=== PATIENT | male | born 1965 | race Caucasian/White ===

== ENCOUNTER → 2019-12-08 18:14 | Outpatient (CLI) | payer OTHER, SELFPAY ==
--- NOTE | 2019-12-08 | DI.MRI.S_ITS ---
PROCEDURE: MRFOOT LT WO CON INDICATIONS: Charcot's joint, left ankle and foot TECHNIQUE: Noncontrast sagittal T1 spin echo and T2 fast spin echo with fat saturation, long-axis T1 spin echo and T2 fast spin echo with fat saturation, short-axis T1 spin echo and T2 fast spin echo with fat saturation through the forefoot. COMPARISON: None. FINDINGS: Image quality: Diagnostic. Bones and joints: Severe degenerative changes of the midfoot joints are most pronounced involving the tarsal metatarsal joints and demonstrate prominent marrow edema, degenerative cystic change, bony remodeling, and potential fragmentation. No definitive acute fracture is evident. There are [id number] degenerative changes involving the other joints of the forefoot. No suspicious osseous lesions are appreciated. No large joint effusions are identified. Soft tissues: Extensive subcutaneous edema about the forefoot is more prominent overlying the dorsal aspect of the forefoot. No unexpected radiopaque foreign bodies are appreciated. No soft tissue masses are evident. Prominent atrophy of the intrinsic muscles of the foot are evident. The flexor and extensor tendons of the foot appear to be within normal limits. The Lisfranc ligament is not well evaluated, but appears to be nearly completely torn. IMPRESSION: 1. Advanced degenerative changes of the midfoot joints is compatible with the patient's history of Charcot arthropathy. Superimposed osteomyelitis cannot be completely excluded on the basis of this examination. 2. No definite fractures. 3. Subcutaneous edema about the forefoot without loculated or drainable fluid collection is of uncertain etiology. Please correlate clinically to exclude cellulitis. Dictated by: Cody Pinto M.D. on 12/09/2019 at 13:56 Approved by: Cody Pinto M.D. on 12/09/2019 at 14:00
--- NOTE | 2019-12-08 | DI.MRI.S_ITS ---
PROCEDURE: MR ANKLE LT W CON INDICATIONS: Charcot's joint, left ankle and foot TECHNIQUE: After the administration of 5 mL of dilute intra-articular Gadolinium contrast into the tibiotalar joint, sagittal T1 spin echo with and without fat saturation, axial T1 fast spin echo with fat saturation and T2 fast spin echo with fat saturation, coronal T1 spin echo and T2 fast spin echo with fat saturation through the ankle. COMPARISON: None. FINDINGS: Image quality: Diagnostic. Bones and joints: No acute fracture, dislocation, or suspicious osseous lesion is appreciated involving the midfoot or hindfoot joints. The ankle mortise alignment is within normal limits. There are no osteochondral fragments or defects involving the tibial plafond toward the talar dome. Severe degenerative changes of the midfoot joints are identified, compatible with the patient's history of Charcot arthropathy. Areas of marrow edema and degenerative cystic change are noted involving the navicular, cuboid, and imaged other tarsal bones. Plantar and Achilles spurs involving the calcaneal tuberosity are identified. There mild degenerative changes of the hindfoot joints. Medial structures: The deltoid and spring ligaments are intact. There is thickening and increased signal identified involving the tibialis posterior tendon with a small amount of fluid contained within its corresponding tendon sheath. The flexor hallucis longus and flexor digitorum longus tendons are intact and otherwise unremarkable. Nonspecific edema is identified involving the distal aspect of the imaged portions of the flexor hallucis longus muscle. The posterior tibial nerve through the region of the tarsal tunnel is within normal limits. Subcutaneous edema about the medial aspect of the ankle is present. Lateral structures: The anterior and posterior distal tibiofibular ligaments are thickened, but noted to be intact. Anterior talofibular ligament is completely torn, which is likely chronic. The posterior talofibular ligament is intact. The calcaneofibular ligament is prominently thickened. The peroneus longus and peroneus brevis tendons are intact, but demonstrate mild increased signal along the posterior margin of the lateral malleolus. There is subcutaneous edema about the lateral aspect of the ankle. Normal fatty signal is seen within the sinus tarsi. Anterior structures: The tibialis anterior, extensor hallucis longus, and extensor digitorum longus tendons appear intact. Posterior and plantar structures: Achilles tendon is intact. Mild thickening involving the distal Achilles tendon is present. Medial and lateral bands of the plantar fascia are of normal thickness. Mild thickening involving medial band of the plantar fascia is present without associated tearing. Fluid is contained within the subcutaneous tissues underlying the plantar surface of the plantar fascia. IMPRESSION: 1. Prominent degenerative changes of the imaged mid foot joints are compatible with the patient's history of Charcot arthropathy. Please note that superimposed osteomyelitis cannot be excluded, if osteomyelitis is of clinical concern. 2. No acute fractures. 3. Moderate tibialis posterior tendinopathy without significant tearing. 4. Mild tenosynovitis involving the medial flexor tendons. There may be a strain of the distal aspect of the flexor hallucis longus muscle. 4. Scarring of the lateral ankle ligaments with a chronic full-thickness anterior talofibular ligament tear. 6. Mild peroneus brevis and peroneus longus tendinopathy. 7. Mild distal Achilles tendinopathy. 8. Plantar and Achilles spurs with corresponding thickening of the heel pad of the plantar fascia. Underlying fluid is present within the subcutaneous tissues. Please correlate clinically for possible plantar fasciitis. 9. Subcutaneous edema about the ankle. Dictated by: Cody Pinto M.D. on 12/09/2019 at 14:00 Approved by: Cody Pinto M.D. on 12/09/2019 at 14:12
== END ==
PROVIDERS: Visit Provider Podiatrist
DX: E11.42 Type 2 diabetes mellitus with diabetic polyneuropathy (principal); S93.492A Sprain of other ligament of left ankle, initial encounter; M65.872 Other synovitis and tenosynovitis, left ankle and foot; M77.52 Other enthesopathy of left foot and ankle; M14.672 Charcot's joint, left ankle and foot; R60.0 Localized edema; R26.81 Unsteadiness on feet; M79.672 Pain in left foot; M25.475 Effusion, left foot
CPT/HCPCS: 73718; 73722

== ENCOUNTER → 2024-03-10 14:45 | Outpatient (CLI) | payer OTHER, SELFPAY ==
--- NOTE | 2024-03-10 14:49 | DI.RAD.S_ITS ---
PROCEDURE: XR SHOULDER RT MIN 2V INDICATIONS: RIGHT SHOULDER PAIN TECHNIQUE: 3 views of the shoulder were acquired. COMPARISON: None. FINDINGS: Bones: No fractures or dislocations. Mild degenerative changes. No suspicious bony lesions. Visualized ribs appear intact. Soft tissues: No suspicious soft tissue calcifications. IMPRESSION: Mild right shoulder DJD. Dictated by: Enrique Argueta M.D. on 03/10/2024 at 21:19 Approved by: Enrique Argueta M.D. on 03/10/2024 at 21:24
== END ==
PROVIDERS: PCP Internal Medicine; Referring Provider Internal Medicine; Visit Provider Internal Medicine
DX: M19.011 Primary osteoarthritis, right shoulder (principal); M25.511 Pain in right shoulder
CPT/HCPCS: 73030

== ENCOUNTER → 2024-05-28 08:21 | Outpatient (CLI) | payer OTHER, SELFPAY ==
--- NOTE | 2024-05-28 | DI.MRI.S_ITS ---
PROCEDURE: MR SHOULDER RT WO CON INDICATIONS: Pain in right shoulder TECHNIQUE: Noncontrast oblique coronal T2 fast spin echo with fat saturation, oblique sagittal T1 spin echo and T2 fast spin echo with fat saturation, axial T1 spin echo and T2 fast spin echo with fat saturation through the shoulder. COMPARISON: None. FINDINGS: Image quality: Excellent. Rotator cuff: Full-thickness rupture of distal supraspinatus and infraspinatus at their insertions on the humeral head is seen with up to 2.9 cm medial retraction of torn tendon fibers to the level of acromion. Moderate grade partial-thickness tear involving superior to mid fibers of distal subscapularis is seen. Sagittal images demonstrate moderate supraspinatus muscle atrophy. Bones and bursae: There is superior migration of humeral head in relation to glenoid. Moderate acromioclavicular joint and glenohumeral joint osteoarthritic changes are seen. No acute fracture or dislocation. Moderate subacromial subdeltoid bursal fluid is noted. No gross loose bodies. Capsule and soft tissues: Labrum is grossly intact. The long head of the biceps tendon appears thickened with intrasubstance T2 hyperintense signal at the level of humeral head . The rotator interval appears normal, without fibrosis. The coracohumeral ligament is normal in thickness. IMPRESSION: 1. Full-thickness rupture of distal supraspinatus and infraspinatus with up to 2.9 cm medial retraction of torn tendon fibers to the level of acromion. Low to moderate grade partial-thickness tear involving superior to mid fibers of distal subscapularis. Moderate supraspinatus muscle atrophy. 2. Superior migration of humeral head. Moderate acromioclavicular joint and glenohumeral joint osteoarthritis. No acute fracture or dislocation. Moderate subacromial subdeltoid bursal fluid, no loose bodies. 3. No definite focal labral tear. 4. Tendinosis and low-grade intrasubstance partial-thickness tear involving proximal intra-articular portion of long head of biceps. Dictated by: Joshua Duarte M.D. on 05/30/2024 at 11:53 Approved by: Joshua Duarte M.D. on 05/30/2024 at 12:04
== END ==
PROVIDERS: PCP Internal Medicine; Referring Provider Internal Medicine; Visit Provider Internal Medicine
DX: M75.121 Complete rotator cuff tear or rupture of right shoulder, not specified as traumatic (principal); S46.111A Strain of muscle, fascia and tendon of long head of biceps, right arm, initial encounter; M25.511 Pain in right shoulder; M19.011 Primary osteoarthritis, right shoulder
CPT/HCPCS: 73221

== ENCOUNTER → 2025-03-06 15:41 | Outpatient (CLI) | payer OTHER, SELFPAY ==
--- NOTE | 2025-03-06 15:44 | DI.RAD.S_ITS ---
PROCEDURE: FL ARTHROGRAM SHOULDER RT INDICATIONS: Rotator cuff repair COMPARISON: None. TECHNIQUE: The indications, alternatives, benefits, risks, and complications of the procedure were explained to the patient. Written informed consent was obtained and placed in the chart. The shoulder was examined fluoroscopically and a site for needle placement chosen for entry into the glenohumeral joint from an anterior approach. The skin was prepped and draped in a sterile fashion, and 1% lidocaine infiltrated from skin down to joint capsule. A spinal needle was inserted into the glenohumeral joint, and a small amount of iodinated contrast media injected to confirm intra-articular placement of the needle tip. This was followed by approximately 12 mL dilute solution of a gadolinium containing MR contrast agent. The needle was removed and a dressing was applied. The patient was given postprocedural instructions and sent to the MR suite for MR imaging. FINDINGS: A single fluoroscopic spot image demonstrates intra-articular location of injected iodinated contrast. IMPRESSION: Successful fluoroscopically guided administration of dilute Gadolinium solution into the shoulder joint for MR arthrogram. Dictated by: Mello Fleming M.D. on 03/06/2025 at 16:43 Approved by: Mello Fleming M.D. on 03/06/2025 at 16:43
--- NOTE | 2025-03-06 15:44 | DI.MRI.S_ITS ---
PROCEDURE: MR SHOULDER RT W CON INDICATIONS: Right shoulder pain post Rotator cuff repair TECHNIQUE: After the administration of 12 mL of dilute intra-articular Gadolinium contrast, oblique coronal T1 and T2 spin echo with fat saturation, oblique sagittal T1 spin echo with and without fat saturation, oblique sagittal T2 fast spin echo with fat saturation, axial T1 spin echo with fat saturation through the shoulder. COMPARISON: [facility], MR, MR SHOULDER RT WO CON, 05/28/2024, 8:45. [facility], CR, XR SHOULDER 2+ VIEWS RIGHT, 05/25/2024, 15:36. FINDINGS: Image quality: Excellent. Rotator cuff: There is full-thickness, full width tear of the supraspinatus and infraspinatus at the footprint, with tendon retraction to the level of the glenohumeral articulation. The teres minor is unremarkable. Low-grade interstitial tear of the superior fiber of the subscapularis. Moderate atrophy of the supraspinatus and the infraspinatus. No muscle edema. Bones and bursae: Mild degenerative changes of the acromioclavicular joint. Type 2 acromion. No os acromiale. Contrast extravasation into the subacromial/subdeltoid bursa. Status post prior rotator cuff tendon repair with multiple surgical suture at the greater tuberosity. No acute fracture. No focal chondral defect of the glenohumeral articulation. Capsule and soft tissues: Superior labral tear, extending posteriorly to the posterior labrum. Mild tendinosis of the extra-articular biceps tendon. The extra-articular biceps tendon is medially subluxed into the interstitial tear of the subscapularis. High-grade tear of the distal intra-articular biceps tendon. No intra-articular body. IMPRESSION: 1. Status post rotator cuff tendon repair. Full-thickness, full width tear of the supraspinatus and infraspinatus with tendon retraction and moderate atrophy. 2. Low-grade interstitial tear of the superior fiber of the subscapularis, containing the medially subluxed extra-articular biceps tendon. High-grade tear of the distal intra-articular biceps tendon. 3. Labral tear. Dictated by: Herlinda Cruz M.D. on 03/06/2025 at 16:49 Approved by: Herlinda Cruz M.D. on 03/06/2025 at 16:57
[2025-03-06] MEDS: LIDOCAINE 1% 20 ML INJ (16:16)
[2025-03-06] MEDS: SODIUM CHLORIDE 0.9 % 20 ML VIAL IV (16:17)
== END ==
PROVIDERS: PCP Internal Medicine; Referring Provider Physician Assistant; Visit Provider Physician Assistant
DX: M75.121 Complete rotator cuff tear or rupture of right shoulder, not specified as traumatic (principal); S46.211A Strain of muscle, fascia and tendon of other parts of biceps, right arm, initial encounter; S43.491A Other sprain of right shoulder joint, initial encounter; Z98.890 Other specified postprocedural states
CPT/HCPCS: 23350; 73040; 73222; A9579; Q9967